=== PATIENT | male | born 1980 | race Caucasian/White ===

== ENCOUNTER 2019-02-19 06:27 | Emergency (ER) | payer SELFPAY ==
[~2019-02-19] VITALS: Ht 172.7 cm; Wt 155.0 kg
[2019-02-19 06:28] VITALS: Ht 172.7 cm; Wt 155.0 kg
[2019-02-19] MEDS ORDERED: SOD CHLORIDE 0.9% 1,000 ML IV STA (06:51)
[2019-02-19] MEDS ORDERED: KETOROLAC 30 MG INJ IV STA (06:51)
[2019-02-19] MEDS ORDERED: ONDANSETRON 4 MG INJ IV STA (06:51)
[2019-02-19] MEDS ORDERED: SOD CHLORIDE 0.9% 100 ML ONE (08:33)
[2019-02-19] MEDS ORDERED: IOHEXOL 300MG/ML 150 ML BTL ONE (08:33)
[2019-02-19] MEDS ORDERED: NAPR-985 PO (09:14)
[2019-02-19] MEDS ORDERED: HYDR-4011 PO (09:14)
[2019-02-19 09:48] VITALS: BP 128/74; PULSE 104; RESP 20
--- NOTE | 2019-02-19 09:48 | ERD ---
ER Documentation Chief Complaint Chief Complaint mid abdominal pain x 2 days; diarrhea x 3 HPI 38-year-old male presenting with abdominal pain x2 days. Patient has had a few episodes of diarrhea and states that he has a hernia. He states he had this hernia for the last 3 years and he is concerned because it does not seem to be reducing. Denies other medical problems. NKDA. Denies vomiting. Has a bowel movement earlier today. Denies fevers. No other medical problems. ROS All systems reviewed and are negative except as per history of present illness. Medications Home Meds Active Scripts Naproxen* (Naprosyn*) 500 Mg Tablet, 500 MG PO BID PRN for PAIN AND/OR INFLAMM ATION, #30 TAB Prov:NICOLE ARCE PA-C 02/19/19 Hydrocodone/Acetaminophen ([place] 5-325 Tablet) 1 Each Tablet, 1 TAB PO Q6H PRN for PAIN, #7 TAB Prov:NICOLE ARCE PA-C 02/19/19 Allergies Allergies: Coded Allergies: No Known Allergy (Unverified , 02/19/19) PMhx/Soc History of Surgery: Yes (Explore lap d/t ruptured appendicitis) Anesthesia Reaction: No Hx Miscellaneous Medical Probl: Yes (Abdominal hernia on left side) Hx Alcohol Use: No Hx Substance Use: No Hx Tobacco Use: Yes Smoking Status: Current every day smoker FmHx Family History: No diabetes, No coronary disease, No other Physical Exam Vitals Vital Signs Date Temp Pulse Resp B/P (MAP) Pulse Ox O2 O2 Flow FiO2 Time Delivery Rate 02/19/19 98.1 106 20 129/64 95 06:28 (85) Physical Exam GENERAL: The patient is well-appearing, well-nourished, in no acute distress HEENT: Atraumatic. Conjunctivae are pink. Pupils equal, round, and reactive to light. There is no scleral icterus. Tympanic membranes clear bilaterally. Oropharynx clear. CHEST: Clear to auscultation bilaterally. There are no rales, wheezes or rhonchi. HEART: Regular rate and rhythm. No murmurs, clicks, rubs or gallops. No S3 or S4. ABDOMEN:Soft, nontender and nondistended. Good bowel sounds. No rebound or guarding. No gross peritonitis. No gross organomegaly or masses. Umbilical hernia noted Result Diagram: 02/19/19 0711 02/19/19 0711 Results 24 hrs Laboratory Tests Test 02/19/19 07:11 White Blood Count 11.7 10^3/ul Red Blood Count 6.38 10^6/ul Hemoglobin 15.6 g/dl Hematocrit 53.3 % Mean Corpuscular Volume 83.5 fl Mean Corpuscular Hemoglobin 24.5 pg Mean Corpuscular Hemoglobin Concent 29.3 g/dl Red Cell Distribution Width 17.0 % Platelet Count 284 10^3/UL Mean Platelet Volume 9.0 fl Immature Granulocytes % 0.700 % Neutrophils % 66.0 % Lymphocytes % 24.5 % Monocytes % 6.8 % Eosinophils % 1.6 % Basophils % 0.4 % Nucleated Red Blood Cells % 0.0 /100WBC Immature Granulocytes # 0.080 10^3/ul Neutrophils # 7.7 10^3/ul Lymphocytes # 2.9 10^3/ul Monocytes # 0.8 10^3/ul Eosinophils # 0.2 10^3/ul Basophils # 0.1 10^3/ul Nucleated Red Blood Cells # 0.0 10^3/ul Urine Color YELLOW Urine Clarity SLIGHTLY CLOUDY Urine pH 5.0 Urine Specific [place] 1.024 Urine Ketones NEGATIVE mg/dL Urine Nitrite NEGATIVE mg/dL Urine Bilirubin NEGATIVE mg/dL Urine Urobilinogen NEGATIVE mg/dL Urine Leukocyte Esterase NEGATIVE Suzanna/ul Urine Microscopic RBC 1 /HPF Urine Microscopic WBC 2 /HPF Urine Squamous Epithelial Cells FEW /HPF Urine Mucus FEW /HPF Urine Hemoglobin 1+ mg/dL Urine Glucose NEGATIVE mg/dL Urine Total Protein 2+ mg/dl Sodium Level 140 mmol/L Potassium Level 4.2 mmol/L Chloride Level 102 mmol/L Carbon Dioxide Level 33 mmol/L Anion Gap 5 Blood Urea Nitrogen 9 mg/dl Creatinine 0.61 mg/dl Est Glomerular Filtrat Rate mL/min > 60 mL/min Glucose Level 179 mg/dl Calcium Level 9.2 mg/dl Total Bilirubin 0.3 mg/dl Direct Bilirubin 0.00 mg/dl Indirect Bilirubin 0.3 mg/dl Aspartate Amino Transf (AST/SGOT) 29 IU/L Alanine Aminotransferase (ALT/SGPT) 35 IU/L Alkaline Phosphatase 146 IU/L Total Protein 9.0 g/dl Albumin 3.9 g/dl Globulin 5.10 g/dl Albumin/Globulin Ratio 0.76 Lipase 39 U/L Current Medications Medications Dose Sig/Eliazar Start Time Status Last (Trade) Ordered Route PRN Stop Time Admin Dose Reason Admin Sodium 1,000 ml @ Q1H STAT 02/19/19 DC 02/19/19 Chloride 1,000 mls/hr IV 06:51 07:16 02/19/19 07:50 Ondansetron 4 mg ONCE STAT 02/19/19 DC 02/19/19 HCl (Zofran IV 06:51 07:16 Inj) 02/19/19 06:52 Ketorolac 30 mg ONCE STAT 02/19/19 DC 02/19/19 Tromethamine IV 06:51 07:16 (Toradol) 02/19/19 06:52 IV Flush 10 ml STK-MED 02/19/19 DC (NS 10 ml) ONCE .ROUTE 08:33 02/19/19 08:34 Sodium 100 ml @ ud STK-MED 02/19/19 DC Chloride ONCE .ROUTE 08:33 02/19/19 08:34 Iohexol 150 ml STK-MED 02/19/19 DC (Omnipaque ONCE .ROUTE 08:33 300mg/ ml) 02/19/19 08:34 Procedures/MDM DIAGNOSTIC IMAGING REPORT Patient: ROMEL ZAMBRANO : 1980 Age: 38 Sex: M MR #: [id number] DOS: 02/19/19 0651 Ordering MD: PHYLICIA ARCE PA-C Location: [facility] Room/Bed: PROCEDURE: CT Abdomen and pelvis with contrast. CLINICAL INDICATION: Abdominal pain TECHNIQUE: CT scan of the abdomen and pelvis with contrast was performed on a multidetector high-resolution CT scan. The patient was scanned following the uncomplicated intravenous administration of 120 ml Omnipaque-300. Coronal and sagittal reformatted images were obtained from the axial source images. Standard CT of the abdomen pelvis with contrast protocols were performed. The total exam CTDI equals 23.89 mGy and the total exam DLP equals 1657.55 mGy- cm. One or more of the following dose reduction techniques were used: - Automated exposure control. - Adjustment of the mA and/or kV according to patient size. Use of iterative reconstruction technique. Dicom images are available COMPARISON: None. FINDINGS: There is a 2.38 x 2.7 cm wide umbilical fat-containing hernia without herniated bowel or strangulation. There are bilateral fat containing inguinal hernias larger on the left without herniated bowel or strangulation. No evidence of intra-abdominal free air, free fluid, abscesses or lymphadenopathy. Kidneys are normal in size without calcified calculi hydronephrosis or intra renal masses bilaterally. No evidence ureteral calcified calculi or dilatation. Contracted otherwise unremarkable urinary bladder. Prostate unremarkable. Single diverticulum involving the medial proximal ascending colon. The remainder of the colon is unremarkable. No evidence of acute diverticulitis. A definite appendix is not visualized however no CT evidence of appendicitis. Stomach and small bowel are unremarkable. Hepatomegaly with diffuse hepatic fatty infiltration. No focal lesion spleen pancreas and right heart. Gallbladder unremarkable. No evidence biliary ductal dilation. Mild dependent subsegmental atelectasis. Aorta unremarkable. Minimal dextrorotoscoliosis of the lower thoracic lumbar spine. Minimal degenerate changes without acute osseous findings are osteoblastic/osteolytic lesions. IMPRESSION: 1. 2.38 x 2.7 cm wide fat-containing umbilical hernia without herniated bowel or strangulation. 2. Bilateral inguinal fat-containing hernias larger on the left without herniated bowel or strangulation. 3. Single diverticulum involving the medial proximal ascending colon. No evidence of diverticulitis. No evidence of appendicitis. 4. No calcified urinary calculi or obstructive uropathy. 5. Hepatomegaly with diffuse hepatic fatty infiltration. MDM: 38-year-old male presenting with umbilical hernia. CT shows no sign of string elation. I have low suspicion for necrotic bowel. I have low suspicion for other acute abdominal emergencies. Patient is discharged with supportive medications and told to follow-up with primary care as he needs to have outpatient surgery consultation. Patient is told symptoms change or worsen to return immediately to the ER. All questions answered at discharge Departure Diagnosis: Primary Impression: Hernia Condition: Stable Patient Instructions: Hernia (Inguinal, Ventral, Umbilical) Referrals: COMMUNITY CLINICS YOU HAVE RECEIVED A MEDICAL SCREENING EXAM AND THE RESULTS INDICATE THAT YOU DO NOT HAVE A CONDITION THAT REQUIRES URGENT TREATMENT IN THE EMERGENCY DEPARTMENT. FURTHER EVALUATION AND TREATMENT OF YOUR CONDITION CAN WAIT UNTIL YOU ARE SEEN IN YOUR DOCTORS OFFICE WITHIN THE NEXT 1-2 DAYS. IT IS YOUR RESPONSIBILITY TO MAKE AN APPOINTMENT FOR FOLOW-UP CARE. IF YOU HAVE A PRIMARY DOCTOR --you should call your primary doctor and schedule an appointment IF YOU DO NOT HAVE A PRIMARY DOCTOR YOU CAN CALL OUR PHYSICIAN REFERRAL HOTLINE AT IF YOU CAN NOT AFFORD TO SEE A PHYSICIAN YOU CAN CHOSE FROM THE FOLLOWING [facility] [address] [facility] [address] [facility] [facility] [address] [facility] [address] [facility] [address] [facility] [facility] [address] Additional Instructions: FOLLOW UP WITH YOUR PRIMARY CARE PHYSICIAN TOMORROW.Return to this facility if you are not improving as expected. NICOLE ARCE PA-C February 19, 2019 09:48
== END 2019-02-19 09:50 | disposition home or self-care (01) ==
LOC: FTE 06:27
DX: K42.9 Umbilical hernia without obstruction or gangrene (principal); F17.210 Nicotine dependence, cigarettes, uncomplicated
CPT/HCPCS: 36415; 74177; 80053; 81001; 83690; 85025; 96361; 96374; 96375; 99285; J1885; J2405; J7030; Q9967